=== PATIENT | female | born 1935 | race Caucasian/White ===

== ENCOUNTER 2021-12-15 18:07 | Emergency (ER) | payer OTHER ==
[~2021-12-15] VITALS: Ht 165.1 cm; Wt 66.7 kg
[2021-12-15 18:11] VITALS: BP 166/78
== END 2021-12-15 19:49 | disposition home or self-care (01) ==
LOC: ER 18:09
DX: S02.2XXA Fracture of nasal bones, initial encounter for closed fracture (principal); I10 Essential (primary) hypertension; E78.5 Hyperlipidemia, unspecified; Z90.49 Acquired absence of other specified parts of digestive tract; W18.39XA Other fall on same level, initial encounter; Y93.89 Activity, other specified; Y92.89 Other specified places as the place of occurrence of the external cause; Y99.8 Other external cause status
CPT/HCPCS: 70450; 70486

== ENCOUNTER 2023-10-24 20:40 | Inpatient (IN) | payer OTHER ==
[~2023-10-24] VITALS: Ht 165.1 cm; Wt 62.7 kg
[2023-10-24] MEDS ORDERED: HYDROcodone-ACET 5/325MG TAB PO PRN (22:45)
[2023-10-24] MEDS ORDERED: hydrALAZINE HCL 10 MG TAB PO PRN (22:45)
[2023-10-24] MEDS ORDERED: ACETAMINOPHEN 325 MG TAB PO PRN (22:45)
[2023-10-24] MEDS ORDERED: ONDANSETRON HCL 4 MG/2 ML VIAL IV PRN (22:45)
[2023-10-24 23:15] VITALS: BP 162/58; PULSE 69; RESP 17; TEMP 98.3; O2SAT 95
[2023-10-24 23:25] VITALS: PULSE 69; RESP 19; O2SAT 95
[2023-10-25 05:00] VITALS: BP 123/52; PULSE 65; RESP 16; TEMP 98.3; O2SAT 96
[2023-10-25 08:10] VITALS: PULSE 64
[2023-10-25] MEDS ORDERED: ATOR40TA52 PO (08:28)
[2023-10-25] MEDS ORDERED: LIFI5DRO2 (08:28)
[2023-10-25] MEDS ORDERED: LOS25T PO (08:28)
[2023-10-25] MEDS ORDERED: METO25TA93 PO (08:28)
[2023-10-25] MEDS ORDERED: AMLO1TAB23 PO (08:28)
[2023-10-25] MEDS ORDERED: DONE5TAB80 PO (08:28)
[2023-10-25 09:00] VITALS: BP 152/54; PULSE 60; RESP 16; TEMP 97.8; O2SAT 97
[2023-10-25] MEDS: ASPirin 81 mg TAB PO SCH (10:34)
[2023-10-25 13:16] LABS: Basophils # (auto) 0 10 ^3/uL (0-0.2); Basophils % (auto) 0.2 % (0.0-2.0); Eosinophils # (auto) 0 10 ^3/uL (0-0.8); Eosinophils % (auto) 0.3 % (0.0-7.0); Hematocrit 39.3 % (36.0-46.0); Hemoglobin 12.9 g/dL (12.2-16.2); Lymphocytes # (auto) 1.5 10 ^3/uL (0.4-5.4); Lymphocytes % (auto) 20.9 % (10.0-50.0); Mean Corpuscular Hemoglobin 32.5 pg (28.0-32.0); Mean Corpuscular Hgb Conc. 32.8 g/dL (32.0-36.0); Mean Corpuscular Volume 99.1 fL (80.0-100.0); Monocytes # (auto) 0.7 10 ^3/uL (0-1.3); Monocytes % (auto) 9.5 % (0.0-12.0); Neutrophils # (auto) 5.1 10 ^3/uL (1.6-8.6); Neutrophils % (auto) 69.1 % (37.0-80.0); Nucleated Red Blood Cells % 0.1 %; Red Blood Cells 3.97 10^6/uL (4.0-5.20); Red Cell Distribution Width 13.1 % (11.8-14.3); White Blood Cell 7.3 10^3/uL (4.4-10.8)
[2023-10-25 13:36] LABS: INR 1.02 (0.9-1.15); Prothrombin Time 10.7 sec (9.3-11.8)
[2023-10-25 14:02] LABS: Chloride 105 mmol/L (98-107); Potassium 3.4 mmol/L (3.5-5.1); Sodium 142 mmol/L (136-145)
[2023-10-25 14:03] LABS: Anion Gap 8 (5-15); Calcium 9.1 mg/dL (8.5-10.1); Carbon Dioxide 29 mmol/L (20-30)
[2023-10-25 14:08] LABS: BUN/Creatinine Ratio 16.9 (10.0-20.0); Blood Urea Nitrogen 11 mg/dL (9-23); Glucose 93 mg/dL (74-106); Triglycerides 83 mg/dL (< 150)
[2023-10-25 14:09] LABS: LDL Cholesterol 57 mg/dL (< 100)
[2023-10-25 14:10] LABS: Cholesterol 138 mg/dL (< 200); HDL Cholesterol 60 mg/dL (40-59)
[2023-10-25 17:00] VITALS: BP 140/61; PULSE 68; RESP 16; TEMP 98; O2SAT 95
[2023-10-25 19:23] LABS: Urine Bacteria FEW /hpf (None Seen); Urine Blood 1+ /uL (Negative); Urine Clarity Clear (Clear); Urine Color Yellow (Yellow); Urine Protein, UAD Negative (Negative); Urine Specific Gravity 1.023 (1.001-1.035); Urine Urobilinogen Normal (Negative); Urine WBC 12 /hpf (0 - 5); Urine pH 5.5 (5.0-8.0)
[2023-10-25 20:00] VITALS: PULSE 59; RESP 18; O2SAT 96
[2023-10-25 22:00] VITALS: BP 146/54; PULSE 56; RESP 18; TEMP 97.5; O2SAT 96
[2023-10-25] MEDS ORDERED: ATORVASTATIN 20 MG TAB PO SCH ×2 (22:00)
[2023-10-26 05:00] VITALS: BP 162/60; PULSE 72; RESP 18; TEMP 98; O2SAT 98
[2023-10-26 05:09] LABS: Chloride 107 mmol/L (98-107); Potassium 3.3 mmol/L (3.5-5.1); Sodium 143 mmol/L (136-145)
[2023-10-26 05:10] LABS: Anion Gap 7 (5-15); Carbon Dioxide 29 mmol/L (20-30)
[2023-10-26 05:15] LABS: Glucose 85 mg/dL (74-106)
[2023-10-26 05:16] LABS: BUN/Creatinine Ratio 19.1 (10.0-20.0); Blood Urea Nitrogen 13 mg/dL (9-23)
[2023-10-26 05:39] LABS: Basophils # (auto) 0 10 ^3/uL (0-0.2); Basophils % (auto) 0.3 % (0.0-2.0); Eosinophils # (auto) 0 10 ^3/uL (0-0.8); Eosinophils % (auto) 0.6 % (0.0-7.0); Hematocrit 37.1 % (36.0-46.0); Hemoglobin 12.3 g/dL (12.2-16.2); Lymphocytes # (auto) 1.9 10 ^3/uL (0.4-5.4); Lymphocytes % (auto) 30.4 % (10.0-50.0); Mean Corpuscular Hemoglobin 32.6 pg (28.0-32.0); Mean Corpuscular Hgb Conc. 33.2 g/dL (32.0-36.0); Mean Corpuscular Volume 98.4 fL (80.0-100.0); Monocytes # (auto) 0.7 10 ^3/uL (0-1.3); Monocytes % (auto) 11.2 % (0.0-12.0); Neutrophils # (auto) 3.6 10 ^3/uL (1.6-8.6); Neutrophils % (auto) 57.5 % (37.0-80.0); Nucleated Red Blood Cells % 0.2 %; Red Blood Cells 3.77 10^6/uL (4.0-5.20); Red Cell Distribution Width 13.3 % (11.8-14.3); White Blood Cell 6.2 10^3/uL (4.4-10.8)
[2023-10-26 08:00] VITALS: PULSE 80; PULSE 82
[2023-10-26 08:10] VITALS: RESP 16; O2SAT 97
[2023-10-26] MEDS ORDERED: cefTRIAXone 1GM/50ML D5W 50 ML IV SCH (09:00)
[2023-10-26] MEDS: ASPirin 81 mg TAB PO SCH (09:06)
[2023-10-26] MEDS ORDERED: LOSARTAN POTASSIUM 25 MG TAB PO SCH (10:00)
[2023-10-26] MEDS ORDERED: DONEPEZIL HYDROCHLORIDE 5 MG TAB PO SCH (10:00)
[2023-10-26] MEDS ORDERED: METOPROLOL SUCCINATE XL 50 MG TAB PO SCH (10:00)
[2023-10-26] MEDS ORDERED: CIPR-173 PO (14:24)
[2023-10-26] MEDS ORDERED: MECL1TAB31 PO (14:24)
== END 2023-10-26 16:40 | disposition home or self-care (01) | DRG 149 ==
LOC: UNDOADMIN 22:32 → TELE-WESTW 22:32
PROVIDERS: ADMIT Nurse Practitioner Family; ATTEND Nurse Practitioner Family
DX: H81.10 Benign paroxysmal vertigo, unspecified ear (principal); N39.0 Urinary tract infection, site not specified; F03.90 Unspecified dementia, unspecified severity, without behavioral disturbance, psychotic disturbance, mood disturbance, and anxiety; I10 Essential (primary) hypertension
CPT/HCPCS: 36415; 70551; 71045; 80048; 80061; 81001; 83036; 84484; 85025; 85610; 87086; 93005; 93306; 97163; G0378; J0696